=== PATIENT | female | born 1980 | race Caucasian/White ===

== ENCOUNTER 2022-02-20 02:29 | Emergency (ER) | payer SELFPAY ==
[2022-02-20] MEDS ORDERED: Sodium Chloride 0.9% 10 ML Syringe FLUSH PRN (03:32)
[2022-02-20] MEDS ORDERED: hydrOXYzine HCl 25 MG Tab PO ONE (03:32)
[2022-02-20] MEDS ORDERED: Dexamethasone 4 MG/ML SDV IVPUSH STA (03:32)
[2022-02-24 13:11] LABS: BABESIA MICROTI IGG <1:10 (Neg:<1:10); BABESIA MICROTI IGM <1:10 (Neg:<1:10)
[2022-02-24 14:11] LABS: HGE IGG TITER Negative (Neg:<1:64); HGE IGM TITER Negative (Neg:<1:20)
== END 2022-02-20 05:10 | disposition home or self-care (01) ==
LOC: JP.ED 02:29
DX: L13.8 Other specified bullous disorders (principal); L56.0 Drug phototoxic response; T50.905A Adverse effect of unspecified drugs, medicaments and biological substances, initial encounter; I10 Essential (primary) hypertension; Z79.899 Other long term (current) drug therapy
CPT/HCPCS: 36415; 80048; 85025; 85651; 86140; 86617; 86618; 86666; 86753; 96374; 99283; A9270; J1100; J3490; 99282